=== PATIENT | male | born 1965 | race Caucasian/White ===

== ENCOUNTER 2018-02-05 14:43 | Emergency (ER) | payer SELFPAY ==
--- NOTE | 2018-02-05 15:00 | Emergency Department Record ---
History of Present Illness - General Chief Complaint: Chest Pain Stated Complaint: CHEST HEAVINESS,WEEKNESS LT ARM Time Seen by Provider: 02/05/18 14:56 Source: Patient Mode of Arrival: Ambulatory Limitations: No limitations - History of Present Illness Initial Comments: The patient is here due to chest heaviness with weakness and sweating for almost 5 hours. The onset was with some mild exertion this AM. Since the onset the heaviness has been mild with mild radiation to the L arm. He has taken a total of 3 ASA's today for the pain. He has no hx of prior cardiac issues. MD Complaint: Chest pain Onset/Timin -: Hour(s) Onset: During exertion Quality: Heaviness Consistency: Constant Improves With: Nothing Worsens With: Nothing Anginal Symptoms: Other - Related Data Allergies Allergy/AdvReac Type Severity Reaction Status Date / Time No Known Allergies Allergy Unverified 09/01/17 08:07 Travel Screening - Travel/Exposure Within Last 30 Days Have you traveled within the last 30 days?: No - Travel/Exposure Within Last Year Have you traveled outside the [place] in the last year?: No - Additonal Travel Details Have you been exposed to anyone with a communicable illness?: No Review of Systems Constitutional: Denies: Chills, Fever Eyes: Denies: Eye discharge ENT: Denies: Congestion Respiratory: Denies: Cough, Dyspnea Past Medical History - SOCIAL HISTORY Smoking Status: Current every day smoker Alcohol Use: Occasional Drug Use: Rare Drug Use Detail:: Marijuana - RESPIRATORY Hx Respiratory Disorders: No - CARDIOVASCULAR Hx Cardio Disorders: No - NEURO Hx Neuro Disorders: No - GI Hx GI Disorders: No - Hx Genitourinary Disorders: No - ENDOCRINE Hx Endocrine Disorders: No - MUSCULOSKELETAL Hx Musculoskeletal Disorders: No - PSYCH Hx Psych Problems: No - HEMATOLOGY/ONCOLOGY Hx Hematology/Oncology Disorders: No Family Medical History Any Significant Family History?: No Hx Diabetes: Mother Hx Heart Disease: Mother, Grandparents Physical Exam - General General Appearance: Alert, Oriented x3, Cooperative, No acute distress - Head Head exam: Atraumatic, Normocephalic - Eye Eye exam: Normal appearance, PERRL - ENT Throat exam: Normal inspection. negative: Tonsillar erythema, Tonsillar exudate - Neck Neck exam: Normal inspection, Full ROM. negative: Tenderness - Respiratory Respiratory exam: Normal lung sounds bilaterally. negative: Respiratory distress - Cardiovascular Cardiovascular Exam: Regular rate, Normal rhythm, Normal heart sounds - GI/Abdominal GI/Abdominal exam: Soft, Normal bowel sounds. negative: Tenderness - Extremities Extremities exam: Normal inspection, Full ROM, Normal capillary refill. negative: Tenderness - Neurological Neurological exam: Alert. negative: Motor sensory deficit Course Vital Signs 02/05/18 14:47 Temperature 98.0 F Pulse Rate 54 L Respiratory 23 Rate Blood Pressure 154/90 Pulse Ox 54 L - Reevaluation(s) Reevaluation #1: I did discuss the issues with the patient and did discuss the fact it appears he is having an Inferior Wall MO. Due to that fact he would like to go to [facility] [place] further care. I then did discuss the case with Dr. Pride at [facility] and he does accept the patient in transfer. I then did discuss the case with Dr. Valencia in the ER and she is aware of the patient stopping in the ER to be registered. 02/05/18 15:18 Medical Decision Making - Data Complexity MDM Data: EKG Ordered and/or Reviewed - Lab Data Result diagrams: 02/05/18 15:00 02/05/18 15:00 - EKG Data -: EKG Interpreted by Me EKG: ST Elevation MO (STEMI) (Inferior wall.) Disposition Disposition: Transfer Disposition: Acute Care Hospital Transfer Transfer To: [facility] [place] Reason For Transfer: Inferior Wall MO Accepting Physician: Shannen Time Discussed w/Accepting Physician: 15:21 Condition: (2) Stable Forms: Patient Portal Access Time of Disposition: 15:21 Quality - Quality Measures Quality Measures: N/A - Blood Pressure Screening View Details: Yes Does Patient Have Any of the Following: No Blood Pressure Classification: Pre-Hypertensive BP Reading Systolic Measurement: 139 Diastolic Measurement: 89 Screening for High Blood Pressure: < Pre-Hypertensive BP, F/U Documented > [ [id number]] Pre-Hypertensive Follow-up Interventions: Referral to alternative/primary care provider.
[2018-02-05] MEDS ORDERED: HEPARIN SODIUM 1000 UNIT/1 ML 10ML VIAL IVP ONE (15:03)
[2018-02-05 15:07] LABS: BASO % 0.2 % (0-6); EOS % 0.4 % (0-6); GRAN % 79.8 % (47-80); HEMATOCRIT 51.6 % (42.0-52.0); HEMOGLOBIN 18.5 gm/dl (14.0-18.0); LYMPH % 13.1 % (16-45); MEAN CELL VOLUME 89.9 fl (81-97); MEAN CORPUSCULAR HEMOGLOBIN 32.2 pg (27-33); MEAN CORPUSCULAR HGB CONC 35.9 g/dl (32-36); MEAN PLATELET VOLUME 10.1 fl (7.4-10.4); MONO % 6.5 % (0-9); PLATELET COUNT 193 K/uL (130-400); RED BLOOD COUNT 5.74 M/uL (4.40-5.70); RED CELL DISTRIBUTION WIDTH 12.9 % (11.5-14.5); WHITE BLOOD COUNT W/O DIFF 12.6 K/uL (4.2-12.2)
[2018-02-05 15:25] LABS: BLOOD UREA NITROGEN 19 mg/dL (6-20); CREATINE PHOSPHOKINASE 405 U/L (39-308); CREATININE 0.8 mg/dL (0.7-1.2); EST GLOMERULAR FILTRATION RATE > 60 mL/min; GLUCOSE,RANDOM 135 mg/dL (74-109)
[2018-02-05 15:27] LABS: CKMB 22.4 ng/mL (<6.73)
[2018-02-05 15:42] LABS: CKMB RELATIVE INDEX 5.53 % (0-4)
== END 2018-02-05 15:20 | disposition short-term general hospital (02) ==
LOC: ER 14:43
DX: I21.19 ST elevation (STEMI) myocardial infarction involving other coronary artery of inferior wall (principal); R53.1 Weakness; F17.210 Nicotine dependence, cigarettes, uncomplicated
CPT/HCPCS: 80048; 82550; 82553; 84484; 85025; 93005; 93010; 96374; 99285